=== PATIENT | female | born 1970 | race Caucasian/White ===

== ENCOUNTER 2016-09-02 18:33 | Observation (INO) | payer BC ==
[~2016-09-02] VITALS: Ht 165.1 cm; Wt 59.1 kg
[2016-09-02 20:37] LABS: CALC OSMOLALITY 275 mosm/kg (275-300); CALCIUM 8.9 mg/dL (8.5-10.1); CARBON DIOXIDE 25.7 mmol/L (21.0-32.0); CHLORIDE - SERUM 104 mmol/L (98-107); CREATININE - SERUM 0.7 mg/dL (0.6-1.3); GLUCOSE 104 mg/dL (74-106); POTASSIUM - SERUM 3.6 mmol/L (3.5-5.1); SODIUM 140 mmol/L (136-145); UREA NITROGEN 4 mg/dL (7-18); eGFR NON AFRICAN AMERICAN > 90 mL/min (90-120)
[2016-09-02 20:39] LABS: BASOPHILS 0.2 % (0-2); EOSINOPHILS 0.9 % (0-7); HEMATOCRIT 41.4 % (36.0-48.0); HEMOGLOBIN 13.7 g/dL (12-16); IMMATURE GRANULOCYTES 0.2 % (0-5); LYMPHOCYTES 36.7 % (15-50); MCH 31.3 pg (26.0-34.0); MCHC 33.1 g/dL (31.0-37.0); MCV 94.5 fL (80.0-100.0); MEAN PLATELET VOLUME 10.5 fL (7.4-10.4); PLATELET COUNT 283 10x3/uL (130-400); RBC 4.38 10x6/uL (4.00-5.40); RDW 13.4 % (11.5-14.5); WBC 8.2 10x3/uL (4.8-10.8)
[2016-09-02 21:43] LABS: APTT 29.9 SECONDS (22.8-39.4); INR 0.89 (0.85-1.17); PROTIME 11.9 SECONDS (11.6-15.0)
[2016-09-02 23:11] VITALS: BP 104/63; Ht 165.1 cm; Wt 59.1 kg
[2016-09-03 04:00] VITALS: BP 103/62
--- NOTE | 2016-09-03 07:15 | NUR ---
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 CALL LIGHT IN REACH.
[2016-09-03 07:29] VITALS: BP 98/49
--- NOTE | 2016-09-03 09:51 | NUR ---
ASSESSMENT COMPLETED. PREOP MEDS ADMINISTERED. SCDs APPLIED TO BLE. PASSWORD, CONTACT INFO, AND PHARMACY OBTAINED. CARE PLAN REVIEWED. FAMILY IN ROOM. CALL LIGHT IN REACH. WILL CONTINUE WITH PLAN OF CARE.
--- NOTE | 2016-09-03 10:30 | NUR ---
TO OR VIA BED.
--- NOTE | 2016-09-03 12:12 | NUR ---
STILL IN OR AT THIS TIME.
[2016-09-03] MEDS ORDERED: HYDROCODONE-APA1 TAB PO (12:28)
[2016-09-03 12:35] VITALS: BP 114/69
--- NOTE | 2016-09-03 12:35 | NUR ---
RECEIVED BACK TO ROOM FROM RECOVERY ROOM VIA BED. DENIES PAIN AT THIS TIME. RX FOR PAIN MEDS GIVEN TO PATIENT'S . WILL DC HOME AFTER PATIENT IS ABLE TO VOID AND EAT.
--- NOTE | 2016-09-03 13:59 | NUR ---
HAS VOIDED AND EATEN. IV DC'D WITH TIP INTACT.
--- NOTE | 2016-09-03 14:20 | NUR ---
DC'D HOME WITH FAMILY. ESCORTED TO VEHICLE BY VOLUNTEER WITH BELONGINGS.
== END 2016-09-03 14:20 | disposition home or self-care (01) ==
LOC: D.ER 18:33 → D.MS 20:33 → OBSVTIME 20:33 → D.MS 20:33
PROVIDERS: Physician Assistant; ADMIT Orthopaedic Surgery
DX: S52.501A Unspecified fracture of the lower end of right radius, initial encounter for closed fracture (principal); S52.611A Displaced fracture of right ulna styloid process, initial encounter for closed fracture; W17.89XA Other fall from one level to another, initial encounter